=== PATIENT | female | born 1985 | race Caucasian/White ===

== ENCOUNTER → 2017-03-21 09:28 | Outpatient (CLI) | payer MEDICAID ==
[2017-03-21 09:55] LABS: BASOPHILS 0.1 % (0-2); HEMATOCRIT 41.4 % (36.0-48.0); HEMOGLOBIN 13.6 g/dL (12-16); IMMATURE GRANULOCYTES 0.3 % (0-5); LYMPHOCYTES 24.3 % (15-50); MCH 30.8 pg (26.0-34.0); MCHC 32.9 g/dL (31.0-37.0); MCV 93.9 fL (80.0-100.0); MEAN PLATELET VOLUME 9.4 fL (7.4-10.4); MONOCYTES 7.9 % (2-11); NEUTROPHILS 66.4 % (40-80); PLATELET COUNT 284 10x3/uL (130-400); RBC 4.41 10x6/uL (4.00-5.40); RDW 12.6 % (11.5-14.5); WBC 7.9 10x3/uL (4.8-10.8)
[2017-03-21 10:19] LABS: ALBUMIN 3.4 g/dL (3.4-5.0); BILIRUBIN - DIRECT 0.12 mg/dL (0.00-0.30); BILIRUBIN - INDIRECT 0.48 mg/dL (0.00-1.00); BILIRUBIN - TOTAL 0.6 mg/dL (0.2-1.3); PROTEIN - SERUM 7.2 g/dL (6.4-8.2)
[2017-03-21 10:21] LABS: % SATURATION 15 % (15-55); IRON 51 ug/dl (35-150); TOTAL IRON BIND CAPACITY 321 ug/dl (260-445); UNSAT IRON BIND CAPACITY 270 ug/dl (150-375)
[2017-03-22 10:13] LABS: HEPATITIS C ANTIBODY <0.1 (0.0-0.9)
[2017-03-23 11:08] LABS: MITOCHONDRIAL ANTIBODY 12.1 Units (0.0-20.0); SMOOTH MUSCLE ABS (ACTIN) 8 Units (0-19)
[2017-03-24 13:13] LABS: ANA REFLEX - DIRECT Negative (Negative)
== END | disposition home or self-care (01) ==
LOC: D.US 09:28
PROVIDERS: Internal Medicine Gastroenterology
DX: K76.0 Fatty (change of) liver, not elsewhere classified (principal); R93.8 Abnormal findings on diagnostic imaging of other specified body structures; R16.2 Hepatomegaly with splenomegaly, not elsewhere classified